=== PATIENT | female | born 2005 | race Caucasian/White ===

== ENCOUNTER 2025-04-23 03:07 | Emergency (ER) | payer OTHER ==
[~2025-04-23] VITALS: Ht 149.9 cm; Wt 48.0 kg
[2025-04-23 03:35] LABS: MEAN PLATELET VOLUME 7.2 FL (7.4-10.4); RED CELL DISTRIBUTION WIDTH 13.1 % (11.5-14.5)
[2025-04-23 03:38] LABS: URINE HCG NEGATIVE (NEG)
--- NOTE | 2025-04-23 03:44 | Physician Documentation ---
History of Present Illness ~ Chief Complaint: Vomiting Stated Complaint: NAUSEA,VOMITING A ALS Time Seen by MD: 03:39 HPI Patient presents to the emergency room for evaluation of nausea vomiting diarrhea and abdominal pain. Patient does have history of prior symptoms r esulting in admission for what she describes as Clostridium difficile. She reports no recent antibiotics. History of GERD and reports taking omeprazole. Medication Reconciliation Allergies: Coded Allergies: metoclopramide (Verified Allergy, Unknown, 04/23/25) prochlorperazine (Verified Allergy, Unknown, 04/23/25) venlafaxine (Verified Allergy, Unknown, 04/23/25) Review of Systems All Other Systems at this time: Reviewed and Negative ROS All review of systems negative except as per HPI Physical Exam Vital Signs: Temperature: 97.1, Source: Oral, Heart Rate: 105, Respiratory Rate: 18, BP: 119/75, Pulse Oximetry: 98, Weight: 48.000 Physical Exam General: Patient is awake, alert, oriented x4 in no acute distress Head: Normocephalic and atraumatic. Eyes: Conjunctival normal. EOMI. PERRL. ENT: Mucous membranes dry. Neck: Supple, trachea is midline. Chest: Clear to auscultation bilaterally without rales, rhonchi, or wheezes. There is no accessory muscle use or retractions. Cardiac: Tachycardic and regular without murmurs, gallops, or rubs. Abd: Soft, nondistended, diffuse tenderness to palpation most prominent in the epigastric area Progress Progress Note 650 AM tolerating PO, up unassisted to bathroom. no vomiting. 704 Dr. Lin evaluated patient she is feeling improved. Discussed lab results and CT with pt and mother. She has appointment tomorrow with PCP> Results/Orders Reviewed/noted all lab results: Yes Results/Orders Orders - JOVAN GARCIA MD Ct Abdomen Pelvis (04/23/25 05:40) Completed Orders - JOVAN GARCIA MD Hcg, Ur Ql (04/23/25 03:22) Cbc/Diff (04/23/25 03:22) BMP (04/23/25 03:22) Lipase (04/23/25 03:22) CMP (04/23/25 03:22) Normal Saline 1000ml (0.9% Sodium Chlori (04/23/25 03:40) Diphenhydramine Inj (Benadryl Inj.) (04/23/25 03:40) Metoclopramide Inj (Reglan Inj) (04/23/25 03:40) Ua W/Microscopic, Cult If Ind (04/23/25 03:22) Cult Urine + [place] Ct (04/23/25 03:58) Diphenhydramine Inj (Benadryl Inj.) (04/23/25 04:00) Lorazepam Inj (Ativan Inj) (04/23/25 04:00) Diphenhydramine Inj (Benadryl Inj.) (04/23/25 04:00) Lorazepam Inj (Ativan Inj) (04/23/25 04:01) Lorazepam Inj (Ativan Inj) (04/23/25 04:15) Haloperidol Lact. (Haldol) (04/23/25 05:00) Famotidine/Pf Iv Inj (Pepcid Iv Inj) (04/23/25 05:00) Mag & Alum Hydrox/Simeth Susp (Maalox Or (04/23/25 05:00) Lidocaine 2% Viscous (Xylocaine 2% Visco (04/23/25 05:00) Drug Screen, Urine (04/23/25 05:15) Amitriptyline Tablet (Elavil Tablet) (04/23/25 05:35) Ct Abdomen Pelvis (04/23/25 05:40) Laboratory Tests Test 04/23/25 03:22 04/23/25 03:23 Urine Specimen Description Cln catch midstream Urine Color Yellow Urine Clarity Clear Urine pH 6.0 Urine Specific [place] >=1.030 Urine Protein Trace Urine Glucose (UA) Negative Urine Ketones >=80 Urine Occult Blood Moderate H Urine Nitrite Negative Urine Bilirubin Negative Urine Urobilinogen 0.2 Urine Leukocyte Esterase Negative Urine RBC 3-10 Urine WBC 5-10 H Urine Squamous Epithelial Cells Few Urine Bacteria 1+ Urine Mucus Few Urine Culture Indicated Indicated Volume Urine Centrifuged 10 ml Urine HCG, Qualitative Negative Urine Comment Urine Opiates Screen Negative Urine Methadone Screen Negative Urine Fentanyl Screen Negative Urine Barbiturates Screen Negative Urine Phencyclidine Screen Negative Urine Amphetamines Screen Negative Urine Benzodiazepines Screen Negative Urine Cocaine Screen Negative Urine Cannabinoids Screen Positive Drug Screen Comment White Blood Count 12.4 H Red Blood Count 4.09 L Hemoglobin 13.2 Hematocrit 37.7 Mean Corpuscular Volume 92.2 Mean Corpuscular Hemoglobin 32.2 H Mean Corpuscular Hemoglobin Concent 35.0 Red Cell Distribution Width 13.1 Platelet Count 346 Mean Platelet Volume 7.2 L Neutrophils (%) (Auto) 69.1 Lymphocytes (%) (Auto) 21.3 Monocytes (%) (Auto) 8.8 Eosinophils (%) (Auto) 0.4 Basophils (%) (Auto) 0.4 Neutrophils # (Auto) 8.5 H Lymphocytes # (Auto) 2.6 Monocytes # (Auto) 1.1 H Eosinophils # (Auto) 0.1 Basophils # (Auto) 0.0 CBC Comment Sodium Level 139 Potassium Level 3.8 Chloride Level 104 Carbon Dioxide Level 20.7 L Anion Gap 14 Blood Urea Nitrogen 11 Creatinine 0.80 Estimated GFR/1.73 m2 > 90 BUN/Creatinine Ratio 13.8 Glucose Level 94 Calcium Level 8.8 Total Bilirubin 1.1 H Aspartate Amino Transf (AST/SGOT) 23 Alanine Aminotransferase (ALT/SGPT) 22 Alkaline Phosphatase 67 Total Protein 7.7 Albumin 4.3 Globulin 3.4 Albumin/Globulin Ratio 1.3 Lipase 33 Chemistry Comments Microbiology Date/Time Source Procedure Growth Status 04/23/25 03:58 Urine Clean Catch Midstream Urine Culture - Final MIXED WILLIE ISOLATED.... Complete EKG/XRAY/CT/US/VASC/MRI CT : Impression CT independently interpreted no perforation or free air Medical Decision Making Findings 19-year-old female history of cyclic vomiting presenting with acute on chronic nausea and vomiting. Similar to prior episodes. CT and labs unremarkable. Vomiting well-controlled. Discharged home Diff Dx GI Bleed:Consideration: Include: Gastritis, Gastroenteritis Diff Dx Pain:Considerations: Include: Bowel obstruction Diff Dx N/V/D:Considerations: Include: Dehydration Diff Dx Rectal:Considerations: Include: Ulcer Departure Disposition: HOME / SELF CARE / HOMELESS Impression: Primary Impression: Cyclic vomiting syndrome Additional Impression Text Your CT scan is reassuring, please follow up with your PCP for further evaluation Referrals: NO PRIMARY CARE PROVIDER (PCP) Signature Scribe Signature: na Attestation: The note accurately reflects work and decisions made by me.Jovan Garcia MD 04/28/25 21:26 JOVAN Hernandez MD Apr 23, 2025 03:44 TYSON LIN MD Apr 23, 2025 06:56
[2025-04-23 03:49] LABS: CREATININE 0.80 MG/DL (0.40-0.90); TOTAL CARBON DIOXIDE 20.7 MMOL/L (24-32); eCRCL 77 ML/MIN; eGFR > 90 ML/MIN
[2025-04-23] MEDS: metoclopramide 5 mg/ml inj IV ONE (03:53)
[2025-04-23] MEDS: normal saline 1000ML IV soln IVB ONE (03:53)
[2025-04-23 03:56] LABS: LEUKOCYTE ESTERASE ,URINE NEGATIVE (Neg); NITRITES, URINE NEGATIVE (Neg); OCCULT BLOOD,URINE MODERATE (Neg); UA COLLECTION TYPE CLN CATCH MIDSTREAM
[2025-04-23 03:57] LABS: SQUAMOUS EPITHELIAL CELL,UR FEW /LPF (FEW)
[2025-04-23 03:58] LABS: MUCUS STRANDS FEW /LPF (Neg)
[2025-04-23 04:36] VITALS: TEMP 97.1
[2025-04-23] MEDS: haloperidol lactate 5mg/ml inj IM ONE (05:00)
[2025-04-23] MEDS: famotidine/PF 10 mg/ml inj IV ONE (05:26)
[2025-04-23] MEDS: mag hydrox/Alum hydrox/simeth 30ml oral suspension PO ONE (06:10)
[2025-04-23] MEDS: LIDOcaine 2% Viscous 15ml cup MM ONE (06:10)
--- NOTE | 2025-04-23 06:37 | RADIOLOGY REPORT ---
Exam: CT CT ABDOMEN PELVIS History: abd pain Comparison Study: None. Technique: Multidetector spiral CT of the abdomen and pelvis was performed from lung bases to pubic symphysis. Imaging was performed without intravenous contrast. Coronal and sagittal multiplanar reformats were obtained from the axial data set by the technologist. Radiation Dose : 1. Abdomen/Pelvis: CTDIvol 4.6 mGy, DLP 196.7 mGy*cm. Findings: Evaluation of vasculature and solid organs is limited due to lack of intravenous contrast use. Lung Bases: Lung bases are clear. Visualized portions of the heart and pericardium are unremarkable. Liver: The liver is normal in size. No focal lesions. Gallbladder and Biliary Tree: The gallbladder is unremarkable No intrahepatic or extrahepatic biliary ductal dilatation. Spleen: Unremarkable Pancreas: The pancreas is grossly unremarkable. Adrenal Glands: Unremarkable Kidneys: Kidneys are unremarkable without calculi or hydronephrosis. GI tract: The stomach is grossly normal in appearance. No evidence of small bowel wall thickening or abnormal dilatation to suggest bowel obstruction. The colon is unremarkable. The appendix is visualized and is normal. Peritoneum/mesentery/retroperitoneum. No evidence of free intraperitoneal air. No ascites. No evidence of suspicious lymphadenopathy. Abdominal Wall: Unremarkable. Vasculature: The visualized abdominal aorta is normal in size and caliber. Evaluation of abdominal and pelvic vessels is limited due to lack of intravenous contrast. Urinary Bladder: Grossly unremarkable for degree of distention. Pelvic Organs: Unremarkable Musculoskeletal: No aggressive focal bony lesions, acute fractures or dislocation. IMPRESSION: 1. No acute abdominal or pelvic findings.
[2025-04-23 06:50] VITALS: BP 104/67; PULSE 114; RESP 22; O2SAT 99
[2025-04-23 07:39] LABS: URINE AMPHETAMINE SCREEN NEGATIVE (Neg); URINE BARBITUATE SCREEN NEGATIVE (Neg); URINE BENZODIAZEPINES SCREEN NEGATIVE (Neg); URINE CANNABINOID SCREEN POSITIVE (Neg); URINE COCAINE SCREEN NEGATIVE (Neg); URINE METHADONE SCREEN NEGATIVE (Neg); URINE OPIATE SCREEN NEGATIVE (Neg); URINE PHENCYCLIDINE SCREEN NEGATIVE (Neg)
== END 2025-04-23 07:19 | disposition home or self-care (01) ==
LOC: ER 03:08
DX: R11.2 Nausea with vomiting, unspecified (principal); R19.7 Diarrhea, unspecified; R10.9 Unspecified abdominal pain; Z79.899 Other long term (current) drug therapy
CPT/HCPCS: 36415; 74176; 80053; 80305; 81001; 81025; 83690; 85025; 87088; 96361; 96374; 96375; 99285; J1200; J2060; J2765; J3490; J7030